=== PATIENT | male | born 1960 | race Caucasian/White ===

== ENCOUNTER → 2020-06-10 10:36 | Outpatient (CLI) | payer BC, SELFPAY ==
--- NOTE | ~2020-06-10 | US_ITS ---
EXAMINATION: US soft tissue chest EXAM DATE: 06/10/2020 10:52 INDICATION: R22.2 - Localized swelling, mass and lump, trunk . TECHNIQUE: Multiple grayscale and Doppler images of the symptomatic chest soft tissue were obtained ( by a technologist who performed the scan) and subsequently reviewed. There is no prior study for srinivasan galan. FINDINGS: Image annotated left breast 6 o'clock position demonstrates a focal region which is slightly hyperech oic to the surrounding fat measuring 1.3 x 0.6 x 1.7 cm. There is another similar echogenicity region . Measuring 4 x 3 x 4 mm. Could be encapsulated lipomas. Consider chest CT without contrast for confi rmation of fat density. IMPRESSION: 2 regions, slightly hyperechoic to subcutaneous fat, most likely encapsulated lipomas. Co nsider noncontrast chest CT for confirmation of fat density. Reviewed, dictated and finalized at location A. [employer] IMPRESSION: 2 regions, slightly hyperechoic to subcutaneous fat, most likely en capsulated lipomas. Consider noncontrast chest CT for confirmation of fat densi ty.
== END ==
PROVIDERS: PCP Nurse Practitioner Family; Visit Provider Nurse Practitioner Family
DX: R22.2 Localized swelling, mass and lump, trunk (principal); N63.25 Unspecified lump in the left breast, overlapping quadrants
CPT/HCPCS: 76604

== ENCOUNTER → 2020-06-26 13:38 | Outpatient (CLI) | payer BC, SELFPAY ==
--- NOTE | ~2020-06-26 | CT_ITS ---
EXAMINATION:CT chest wo con DATE: 06/26/2020 14:22 INDICATION: Left chest mass. TECHNIQUE: Computed tomography (CT) of the chest was performed without intravenous contrast. Automate d exposure control and iterative reconstruction technique were employed. The dose-length product (DLP ) was 554.48 mGy-cm. COMPARISON: Chest CT 06/29/2015, ultrasound 06/10/2020 FINDINGS: The lungs demonstrate mild atelectasis. No pleural effusion. The heart size is normal. No p ericardial effusion. There are no pathologically enlarged lymph nodes. There is a 1.9 cm nodule in ri ght thyroid lobe, stable from 06/29/2015, likely benign. There is an electronic implant in left anteri or chest wall. There is a skin marker inferior to the left nipple. There is subcutaneous fat in this area with no abnormal mass. There is mild thoracic spondylosis. There is severe cervical spondylosis. IMPRESSION: 1. Normal subcutaneous fat in the patient's area of concern inferior to the left nipple. Reviewed, dictated and finalized at location A. NG [employer] IMPRESSION: 1. Normal subcutaneous fat in the patient's area of concern inferior to the lef t nipple.
== END ==
PROVIDERS: PCP Family Medicine; Visit Provider Nurse Practitioner Family
DX: R22.2 Localized swelling, mass and lump, trunk (principal); M47.813 Spondylosis without myelopathy or radiculopathy, cervicothoracic region; E04.1 Nontoxic single thyroid nodule
CPT/HCPCS: 71250

== ENCOUNTER 2020-10-20 08:58 | Outpatient (CLI) | payer BC, SELFPAY ==
--- NOTE | ~2020-10-20 | US_ITS ---
US soft tissue abdomen 10/20/2020 09:36 Indication: Right lower quadrant palpable abnormality since May 28 been by insect. Patient states the palpable abnormality increases and decreases in size and sometimes painful. Procedure: High-resolution Limited soft tissue ultrasound of the area of palpable concern Comparison: No prior studies for comparison. Findings: In the subcutaneous tissues in the area of palpable concern there is an elliptical hypoecho ic mass measuring 1.9 x 0.2 x 1.2 cm without posterior features. There is internal vascularity. Surro unding soft tissues are unremarkable. Impression: 1: Elliptical hypoechoic mass corresponding to the palpable abnormality measuring 1.9 x 0.2 x 1.2 cm, likely focal phlegmon/infection. Complicated sebaceous cyst less favored given the appearance and cl inical history. Consider attempted aspiration using ultrasound guidance as clinically warranted. Reviewed, dictated and finalized at location B. Impression: 1: Elliptical hypoechoic mass corresponding to the palpable abnormality measuri ng 1.9 x 0.2 x 1.2 cm, likely focal phlegmon/infection. Complicated sebaceous c yst less favored given the appearance and clinical history. Consider attempted aspiration using ultrasound guidance as clinically warranted.
== END 2020-10-20 08:59 | disposition home or self-care (01) ==
PROVIDERS: PCP Family Medicine; Visit Provider Nurse Practitioner Family
DX: R19.00 Intra-abdominal and pelvic swelling, mass and lump, unspecified site (principal); M79.5 Residual foreign body in soft tissue; R10.31 Right lower quadrant pain
CPT/HCPCS: 76705

== ENCOUNTER 2020-11-21 20:59 | Emergency (ER) | payer BC, SELFPAY ==
[2020-11-21 21:07] VITALS: BP 140/86; PULSE 99; RESP 17; TEMP 37; O2SAT 95
[2020-11-21 21:53] LABS: Basophils Percent Auto 0.4 % (0.2-1.2); Eosinophils Absolute Auto 0.3 K/mm3 (0-0.3); Hemoglobin 16.2 g/dL (14.0-18.0); Immature Granulocyte Absolute 0.02 K/mm3 (0.00-0.031); Immature Granulocyte Percent A 0.2 % (0-0.5); Lymphocytes Absolute Auto 2.77 K/mm3 (0.9-3.2); Lymphocytes Percent Auto 31.1 % (18.3-44.2); Mean Corpuscular HGB Conc 34.5 g/dl (32-36); Mean Corpuscular Hemoglobin 31.2 pg (26-34); Mean Corpuscular Volume 90.4 fl (80-100); Mean Platelet Volume 10.2 fl (7.4-10.4); Monocytes Absolute Auto 0.7 K/mm3 (0.1-0.6); Monocytes Percent Auto 8.1 % (2.6-8.5); Neutrophils Absolute Auto 5.1 K/mm3 (1.3-6.7); Neutrophils Percent Auto 57.2 % (45.5-73.1); Platelet Count Result 217 k/mm3 (150-375); Red Cell Distribution Width 11.7 % (11.5-14.5); White Blood Count 8.9 K/mm3 (4.5-10.0)
[2020-11-21 22:02] LABS: Anion Gap 11 mmol/L (8-16); Blood Urea Nitrogen 17 mg/dL (9-20); Calcium 8.8 mg/dL (8.4-10.2); Carbon Dioxide 21 mmol/L (22-30); Chloride 105 mmol/L (98-107); Estimated CRCL calculation 89 ml/min; Estimated Glomerular Filt Rate > 60; Glucose 205 mg/dL (75-110); Potassium 3.9 mmol/L (3.4-5.0); Sodium 137 mmol/L (137-145)
--- NOTE | 2020-11-21 22:16 | ED.SKABFB ---
HPI - Skin/Abscess/Foreign Bdy General Chief complaint: Skin/Abscess/Foreign Body Stated complaint: lump in side is infected Time Seen by Provider: 11/21/20 21:11 Source: patient Mode of arrival: ambulatory Limitations: no limitations History of Present Illness HPI narrative: Patient is a 60-year-old male complaining of a tender swollen area on his right lower quadrant that has been going on for a while but for the past 2 days it is worse. Patient states that he has an appointment to have it removed by Dr. Jacobs third week of November. Patient denies any abdominal pain, fever, chills. Patient denies any nausea or vomiting. Related Data Allergies Allergy/AdvReac Type Severity Reaction Status Date / Time No Known Allergies Allergy Verified 11/14/20 09:06 Review of Systems Review of Systems: All systems reviewed & are unremarkable except as noted in HPI and below Constitutional: Constitutional: Denies body ache(s), Denies chills, Denies excessive sweating, Denies fatigue, Denies fever(s), Denies headache(s), Denies lethargy, Denies malaise, Denies weakness and Denies weight loss Eyes: Eyes: Denies blurry vision, Denies change in vision and Denies loss of vision ENT: Denies dizziness, Denies ear discharge, Denies headache(s), Denies lip swelling, Denies epistaxis, Denies nasal congestion, Denies neck pain, Denies throat swelling and Denies tongue swelling Cardiovascular: Cardiovascular: Denies chest pain, Denies chest pain at rest, Denies chest pain with activity, Denies diaphoresis, Denies rapid heart rate, Denies edema, Denies irregular heart rhythm, Denies lightheadedness, Denies palpitations, Denies dyspnea and Denies dyspnea on exertion Respiratory: Respiratory: Denies chest congestion, Denies cough, Denies hemoptysis, Denies dyspnea and Denies dyspnea on exertion Gastrointestinal: Gastrointestinal: Denies abdominal pain, Denies melena, Denies hematochezia, Denies diarrhea, Denies nausea, Denies vomiting and Denies hematemesis Musculoskeletal: Musculoskeletal: Denies abnormal gait, Denies deformity, Denies joint swelling, Denies limited range of motion, Denies neck pain and Denies numbness Neurologic: Denies Abnormal speech present, Denies abnormal gait, Denies confusion, Denies dizziness, Denies headache(s), Denies focal weakness, Denies loss of vision, Denies numbness, Denies Other visual disturbances, Denies Sensory deficit (Neuro) and Denies weakness Psychiatric: Psychiatric: Denies confusion, Denies depression, Denies auditory hallucinations, Denies homicidal ideation and Denies suicidal ideation Endocrine: Endocrine: Denies cold intolerance, Denies excessive sweating, Denies fatigue, Denies heat intolerance and Denies palpitations Hematologic/Lymphatic: Hematologic/Lymphatic: Denies easy bleeding and Denies easy bruising Allergic/Immunologic: Allergic/Immunologic: Denies lip swelling, Denies throat swelling and Denies tongue swelling PMFSH Past Medical History Medical History BMI 32.0-32.9,adult Essential (primary) hypertension Type 2 diabetes mellitus, uncontrolled Surgical History Surgical History H/O hand surgery Family History Family History Mother Family history of lung cancer Grandparent Brain cancer Social History Social History Smoking status: Never smoker Alcohol intake: current Substance use: unknown Additional occupation/education comments: [employer] Gender identity (if verbalized by the patient): Male Exam Const: General: cooperative, healthy appearing, comfortable, no acute distress, well developed, alert and awake; No confusion Orientation/consciousness: oriented to person, oriented to place, oriented to time, patient oriented x3 and No confusion Limitations: no
[2020-11-21 22:35] VITALS: BP 136/72; PULSE 80; RESP 18; O2SAT 96
== END 2020-11-21 22:35 | disposition home or self-care (01) ==
PROVIDERS: Emergency Provider Emergency Medicine; PCP Family Medicine
DX: L03.311 Cellulitis of abdominal wall (principal); E11.9 Type 2 diabetes mellitus without complications; I10 Essential (primary) hypertension
CPT/HCPCS: 36415; 80048; 85025; 99283

== ENCOUNTER → 2020-11-25 06:45 | Outpatient (CLI) | payer BC, SELFPAY ==
[2020-11-25 19:16] LABS: SARS-CoV-2 RNA PCR Negative
== END ==
PROVIDERS: PCP Family Medicine; Visit Provider Surgery
DX: Z01.812 Encounter for preprocedural laboratory examination (principal); Z20.822 Contact with and (suspected) exposure to COVID-19
CPT/HCPCS: C9803; U0003; U0005

== ENCOUNTER 2020-11-29 01:05 | Day surgery (SDC) | payer BC, SELFPAY ==
[2020-11-22 15:44] VITALS: BMI 29.6
[2020-11-29 05:59] VITALS: BP 138/83; PULSE 77; RESP 16; TEMP 36.4; O2SAT 97
--- NOTE | 2020-11-29 06:01 | ECG_ITS ---
Measurements Intervals [place] Rate: 71 P: 35 LA: 165 QRS: -19 QRSD: 84 T: 35 QT: 377 QTc: 412 Interpretive Statements SINUS RHYTHM INCOMPLETE RIGHT BUNDLE BRANCH BLOCK DELAYED PRECORDIAL R/S TRANSITION INFERIOR INFARCT, AGE INDETERMINATE BASELINE ARTIFACT- II, III, AVR, AVL, AVF ABNORMAL ECG Electronically Signed On 11-29-2020 8:05:16 CDT by Go Lam D.O.
[2020-11-29] MEDS: LACTATED RINGERS 1,000 ML 30 ML IV CONT (06:38)
[2020-11-29 06:41] LABS: Glucose Point of Care 139 (65-105)
--- NOTE | 2020-11-29 06:43 | WPDANESEPPF ---
Anes - Initial Pre Proc Eval Procedure: Operation Date: 11/29/20 07:30 Proposed Procedures p Excision Two Centimeter Right Lower Quadrant Abdominal Wall Mass - Tarik Jacobs DO Date/Time: 11/29/20 06:43 Surgeon: Tarik Jacobs DO Pre Op Diagnosis: Right Lower Quadarent Abdominal Wall Mass Patient Data Age: 60 Gender: M Height: 1.85 m Weight: 102 kg Allergies Allergy/AdvReac Type Severity Reaction Status Date / Time No Known Allergies Allergy Verified 11/29/20 06:19 Home Medications Medication Instructions Recorded Confirmed Type esomeprazole magnesium 40 mg 40 mg PO DAILY #90 cap 05/29/20 11/29/20 Rx capsule,delayed release ezetimibe 10 mg tablet 10 mg PO DAILY #90 tablet 07/27/20 11/29/20 Rx dulaglutide 1.5 mg/0.5 mL 1.5 mg SUB-Q WEEKLY #6 ml 10/12/20 11/29/20 Rx subcutaneous pen injector pregabalin 150 mg capsule 150 mg PO BID #60 cap 10/12/20 11/29/20 Rx doxycycline hyclate 100 mg PO BID 11/22/20 11/29/20 History benazepril 10 mg tablet 10 mg PO DAILY #90 tablet 11/24/20 11/29/20 Rx metformin 500 mg tablet,extended 2,000 mg PO DAILY #360 tablet 11/24/20 11/29/20 Rx release 24 hr dapagliflozin [Farxiga] 10 mg PO DAILY 11/29/20 11/29/20 History Laboratory Tests 11/29/20 06:34 POC Capillary Glucose 139 mg/dl H mg/dl (65-105) Patient hx anesthesia problems: none Family hx anesthesia problems: none PMFSH Past Medical History Medical History (Updated 11/28/20 @ 13:13 by Jr Lugo DO) BMI 32.0-32.9,adult Essential (primary) hypertension Hyperlipidemia Type 2 diabetes mellitus, uncontrolled Surgical History Surgical History H/O hand surgery Family History Family History Mother Family history of lung cancer Grandparent Brain cancer Social History Social History Smoking status: Never smoker Alcohol intake: current Drinks per week: 4 Substance use: never Substance use type: does not use Living arrangements: with family Additional occupation/education comments: [employer] Gender identity (if verbalized by the patient): Male Spiritual care concerns: No Anes - Eval Final PreProcedure Day of Procedure 11/29/20 06:43 Patient weight: overweight Heart: regular rate and rhythm Lungs: clear to auscultation and normal air movement Airway: Mallampati scale class II Neurological: alert and oriented Last oral intake: >/= 8 hours ASA classification: III Emergent: no Anesthetic plan: proceed Anesthesia type and monitoring: general GIVS and standard monitoring Informed Consent: The patient's anesthetic plan and its attendant risks and benefits were discussed with the patient/family/POA. Questions were solicited and answers provided to the satisfaction of the patient/family/POA.
[2020-11-29] MEDS: LIDO 1%/EPINEPHRINE 1:100,000 50 ML VIAL 30 ML INFILTRATE (07:11)
--- NOTE | 2020-11-29 07:16 | WPDHPUPDATE1 ---
History and Physical Update Update Date/Time: 11/29/20 07:16 History and Physical has been reviewed, including an updated exam of the patient. There are NO changes in the patient's condition. Risks, benefits, and alternatives have been discussed and questions answered. Patient agrees to proceed with procedure.
[2020-11-29 08:09] VITALS: BP 117/75; PULSE 85; RESP 16; O2SAT 96
--- NOTE | 2020-11-29 08:09 | P.OP_ITS ---
Procedure Note - Detailed Date of procedure: 11/29/20 Pre-op diagnosis: Right Lower Quadarent Abdominal Wall Mass Post-op diagnosis: same Procedure performed: 1. Excision of 2 cm right lower quadrant abdominal wall mass 2. Layered closure Description of procedure: * Procedure as well as risks, benefits, and alternatives were discussed with the patient. Written consent was obtained and placed in chart prior to procedure. Patient was brought back to surgical suite. IV sedation was administered by the Anesthesia Department. His right lower abdomen was prepped and draped in sterile fashion using chlorhexidine prep. Time-out was done to confirm patient and procedure. 1% lidocaine with epinephrine was infiltrated locally around the abdominal wall mass. A 2 cm x 6 cm elliptical incision was made around the mass to excise it completely using a 15 blade scalpel. The mass was sharply dissected down through the dermis using a 15 blade scalpel. Electrocautery was then used to dissect the mass free from the surrounding subcutaneous fat. The mass was completely excised and sent to the lab for pathology. The wound bed was inspected and hemostasis appeared adequate. The deep dermis and subcutaneous tissue was approximated using 3 0 Vicryl inverted interrupted sutures. The skin was then approximated using 4 0 Monocryl running subcuticular suture. Exofin glue was then applied on top. Patient was then awakened from anesthesia and transferred to recovery. Anesthesia: MAC and local (1% lidocaine with epinephrine) Surgeon: Tarik Jacobs DO Estimated blood loss (mL): 5 Pathology: yes (Abdominal wall mass) Complications: No immediate complications Condition: stable Disposition: same day Findings: This is a 60-year-old man who presented with a mass on his right lower quadrant abdominal wall. He states that it has fluctuated in size and has become red and irritated. He has tried antibiotics for this but it has not gone down in size. He denies any open wounds or drainage. An ultrasound was obtained and this showed evidence of phlegmonous changes and a possible foreign body just deep to the skin. Discussions were made with the patient about his treatment options and decision was made to proceed with excision of 2 cm right lower quadrant abdominal wall mass under IV sedation. The 2 cm mass was excised completely. This appeared to be possibly a cyst or abscess contained within the subcutaneous space. An elliptical incision was used to excise the area completely. Layered closure was then performed using 3 0 Vicryl sutures followed by 4 0 Monocryl running subcuticular suture. Specimen was sent to the lab for pathology.
[2020-11-29 08:39] VITALS: BP 116/71; PULSE 85; RESP 16; O2SAT 94
[2020-11-29 09:09] VITALS: BP 117/72; PULSE 76; RESP 16
[2020-11-29 09:20] LABS: Glucose Point of Care 171 (65-105)
[2020-11-29 09:25] VITALS: BP 128/71; PULSE 67; RESP 16
== END 2020-11-29 09:35 | disposition home or self-care (01) ==
PROVIDERS: PCP Family Medicine; Visit Provider Surgery
PROC: (CPT 11402; principal; 2020-11-29 07:30)
DX: L72.0 Epidermal cyst (principal); E11.9 Type 2 diabetes mellitus without complications; I10 Essential (primary) hypertension; E78.5 Hyperlipidemia, unspecified; Z79.84 Long term (current) use of oral hypoglycemic drugs
CPT/HCPCS: 11402; 12032; 82948; 88304; 93005; A9270; C9803; J2250; J2704; J3010; J7120; U0003; U0005

== ENCOUNTER → 2021-02-26 15:44 | Outpatient (CLI) | payer BC, SELFPAY ==
--- NOTE | ~2021-02-26 | CT_ITS ---
EXAMINATION: CT abdomen pelvis w con DATE: 02/26/2021 16:03 INDICATION: Right lower quadrant abdominal pain. Blood in stool. Mass removed from right lower quadra nt 2 months ago. TECHNIQUE: Computed tomography (CT) of the abdomen and pelvis was performed with 100 cc Omnipaque 350 intravenous contrast. Automated exposure control and iterative reconstruction technique were employe d. Exam dose: 1067.80 mGy-cm total exam DLP. COMPARISON: 06/23/2012 CT abdomen pelvis 06/09/2020 CT chest. FINDINGS: The lung bases are clear of infiltrate or consolidation. There is minimal dependent lower l obe atelectasis. Borderline heart size. No pericardial or pleural effusion. There is hepatic steatosis with minimal sparing in the pericholecystic area. No hepatic space-occupyi ng mass lesion is evident. Normal splenic size. No pancreatic mass lesion or calcification or ductal dilatation. The gallbladder is present. No bile duct dilatation. Normal morphology of the adrenal glands. Several small probable cortical cysts of the kidneys. No urinary tract calculus or hydroureteronephro sis. Normal caliber of the abdominal aorta. No intraperitoneal or retroperitoneal or pelvic mass lesion or adenopathy or ascites. Mild prominence of the prostate gland. The urinary bladder is unremarkable. Normal caliber of the abdominal aorta. No intraperitoneal or retroperitoneal or pelvic mass lesion or adenopathy or ascites. The appendix appears unremarkable. No CT evidence of appendicitis. Minimal diverticulosis of the colon; no CT evidence of diverticulitis is evident Chronic L1 fracture deformity. Severe degenerative disc disease throughout the lumbar and lumbosacral spine, particularly severe at L2-3, L4-5 and L5-S1. There is minimal retrolisthesis at L3-4 in association with the degenerative di sc disease. IMPRESSION: Minimal colonic diverticulosis; no evidence of bowel obstruction Hepatic steatosis Several small renal cysts Chronic L1 fracture deformity and severe degenerative change of the lumbar spine Reviewed, dictated and finalized at Location [facility]. Reviewed, dictated and finalized at location B. IMPRESSION: Minimal colonic diverticulosis; no evidence of bowel obstruction Hepatic steatosis Several small renal cysts Chronic L1 fracture deformity and severe degenerative change of the lumbar spin e
[2021-02-26 15:59] LABS: Estimated Glomerular Filt Rate > 60
== END ==
PROVIDERS: PCP Family Medicine; Visit Provider Nurse Practitioner Family
DX: R10.31 Right lower quadrant pain (principal); K57.90 Diverticulosis of intestine, part unspecified, without perforation or abscess without bleeding; K76.0 Fatty (change of) liver, not elsewhere classified; N28.1 Cyst of kidney, acquired; M43.8X6 Other specified deforming dorsopathies, lumbar region
CPT/HCPCS: 74177; Q9967

== ENCOUNTER 2021-02-26 16:55 | Outpatient (CLI) | payer BC, SELFPAY ==
[2021-02-26 17:17] LABS: Basophils Percent Auto 0.5 % (0.2-1.2); Eosinophils Absolute Auto 0.4 K/mm3 (0-0.3); Eosinophils Percent Auto 4.9 % (0-4.4); Hematocrit 50.4 % (42.0-52.0); Immature Granulocyte Absolute 0.01 K/mm3 (0.00-0.031); Immature Granulocyte Percent A 0.1 % (0-0.5); Lymphocytes Absolute Auto 2.34 K/mm3 (0.9-3.2); Lymphocytes Percent Auto 29.3 % (18.3-44.2); Mean Corpuscular HGB Conc 33.7 g/dl (32-36); Mean Corpuscular Hemoglobin 30.4 pg (26-34); Mean Platelet Volume 10.1 fl (7.4-10.4); Monocytes Absolute Auto 0.8 K/mm3 (0.1-0.6); Monocytes Percent Auto 9.4 % (2.6-8.5); Neutrophils Absolute Auto 4.5 K/mm3 (1.3-6.7); Neutrophils Percent Auto 55.8 % (45.5-73.1); Platelet Count Result 248 k/mm3 (150-375); Red Cell Distribution Width 11.9 % (11.5-14.5)
[2021-02-26 17:30] LABS: Alanine Aminotransferase 35 U/L (4-50); Albumin Level 4.5 g/dL (3.5-5.1); Alkaline Phosphatase 69 U/L (38-126); Amylase 99 U/L (30-110); Anion Gap 11 mmol/L (8-16); Aspartate Amino Transferase 27 U/L (17-59); Bilirubin,Total 0.6 mg/dL (0.2-1.3); Blood Urea Nitrogen 15 mg/dL (9-20); Calcium 9.7 mg/dL (8.4-10.2); Carbon Dioxide 23 mmol/L (22-30); Chloride 104 mmol/L (98-107); Estimated Glomerular Filt Rate > 60; Glucose 147 mg/dL (65-110); Lipase 136 U/L (23-300); Potassium 4.7 mmol/L (3.4-5.0); Sodium 138 mmol/L (137-145)
== END 2021-02-26 16:56 | disposition home or self-care (01) ==
PROVIDERS: PCP Family Medicine; Visit Provider Nurse Practitioner Family
DX: R10.31 Right lower quadrant pain (principal)
CPT/HCPCS: 36415; 80053; 82150; 83690; 85025

== ENCOUNTER 2021-03-08 20:20 | Emergency (ER) | payer BC, SELFPAY ==
--- NOTE | ~2021-03-08 | CT_ITS ---
EXAMINATION: CT abdomen pelvis w con DATE: 03/08/2021 21:01 INDICATION: Right lower quadrant abdominal pain and blood in the stool. TECHNIQUE: Computed tomography (CT) of the abdomen and pelvis was performed with 100 mL Omnipaque-350 intravenous contrast. Automated exposure control and iterative reconstruction technique were employe d. The dose-length product was 1278.14 mGy-cm. COMPARISON: 02/26/2021 FINDINGS: Lung bases are clear. Heart size is normal. No pericardial or pleural effusion. Small sliding-type hi atal hernia. Diffuse hepatic steatosis with focal sparing along the gallbladder fossa. Gallbladder, s pleen, pancreas and bilateral adrenal glands are normal. Approximately 5 mm bilateral renal cysts. Bl adder is normal. The bowels including the appendix are normal. No free intraperitoneal gas or fluid. No pathologically enlarged abdominal or pelvic lymphadenopathy. Mild lumbar dextrocurvature with maria m re spondylosis. Chronic L1 compression fracture. IMPRESSION: 1. No acute intra-abdominal/pelvic process. 2. Small sliding-type hiatal hernia. 3. Diffuse hepatic steatosis. Reviewed, dictated and finalized at location A.
[2021-03-08 20:25] VITALS: BP 175/112; PULSE 101; RESP 18; TEMP 36.8; O2SAT 98
[2021-03-08 20:48] LABS: Basophils Absolute Auto 0.1 K/mm3 (0.0-0.1); Basophils Percent Auto 0.5 % (0.2-1.2); Eosinophils Absolute Auto 0.4 K/mm3 (0-0.3); Eosinophils Percent Auto 3.9 % (0-4.4); Hematocrit 53.1 % (42.0-52.0); Hemoglobin 17.9 g/dL (14.0-18.0); Immature Granulocyte Absolute 0.02 K/mm3 (0.00-0.031); Immature Granulocyte Percent A 0.2 % (0-0.5); Lymphocytes Absolute Auto 3.72 K/mm3 (0.9-3.2); Lymphocytes Percent Auto 40.7 % (18.3-44.2); Mean Corpuscular HGB Conc 33.7 g/dl (32-36); Mean Corpuscular Hemoglobin 30.7 pg (26-34); Mean Corpuscular Volume 90.9 fl (80-100); Mean Platelet Volume 10.2 fl (7.4-10.4); Monocytes Absolute Auto 0.9 K/mm3 (0.1-0.6); Monocytes Percent Auto 9.4 % (2.6-8.5); Neutrophils Absolute Auto 4.1 K/mm3 (1.3-6.7); Neutrophils Percent Auto 45.3 % (45.5-73.1); Platelet Count Result 254 k/mm3 (150-375); Red Blood Count 5.84 M/mm3 (4.6-6.20); Red Cell Distribution Width 12.4 % (11.5-14.5); White Blood Count 9.1 K/mm3 (4.5-10.0)
[2021-03-08 20:57] LABS: INR 0.9; Prothrombin Time 12.3 Seconds (11.1-14.7)
[2021-03-08 21:12] LABS: Alanine Aminotransferase 41 U/L (4-50); Albumin Level 4.9 g/dL (3.5-5.1); Alkaline Phosphatase 74 U/L (38-126); Anion Gap 12 mmol/L (8-16); Aspartate Amino Transferase 33 U/L (17-59); Bilirubin,Total 0.6 mg/dL (0.2-1.3); Blood Urea Nitrogen 15 mg/dL (9-20); Calcium 9.8 mg/dL (8.4-10.2); Carbon Dioxide 24 mmol/L (22-30); Chloride 99 mmol/L (98-107); Estimated CRCL calculation 89 ml/min; Estimated Glomerular Filt Rate > 60; Glucose 171 mg/dL (65-110); Potassium 4.6 mmol/L (3.4-5.0); Sodium 135 mmol/L (137-145)
[2021-03-08 22:20] VITALS: BP 163/97; PULSE 87; RESP 15; O2SAT 96
[2021-03-08 22:32] VITALS: BP 140/88; PULSE 78; RESP 20; O2SAT 96
[2021-03-08 22:46] VITALS: BP 160/97; PULSE 80; RESP 25; O2SAT 92
--- NOTE | 2021-03-08 22:56 | ED.GIBLEED ---
HPI - GI Bleed General Chief complaint: GI Bleed Stated complaint: blood in stool, abd pain Time Seen by Provider: 03/08/21 22:23 Source: patient and family Mode of arrival: ambulatory Limitations: no limitations History of Present Illness HPI Narrative: Patient is 60 years old white male presented to the ED with gradual increasing of pain at the right lower quadrant over weeks, got more noticeable 2 weeks ago, constant. Patient also noticed intermittent blood streaks on the stool every now and then. Patient also complaining of constipation for the last 4 weeks. 1 bowel movement every now and then. Patient scheduled to be seen by demonstrator [employer] next week. Patient denies any fever, chills, nausea, vomiting, urinary symptoms, chest pain or shortness of breath. Related Data Home Medications Medication Instructions Recorded Confirmed Farxiga 10 mg PO DAILY 11/29/20 03/07/21 Allergies Allergy/AdvReac Type Severity Reaction Status Date / Time No Known Allergies Allergy Verified 03/08/21 20:25 Review of Systems Review of Systems: CONSTITUTIONAL: Denies fever, chills, or sweats. EYES: Denies visual changes, redness, or discharge. ENT: Denies rhinorrhea, congestion, sore throat, or otalgia. CARDIOVASCULAR: Denies chest pain, palpitations, or edema. RESPIRATORY: Denies cough or dyspnea. GASTROINTESTINAL: Denies abdominal pain, nausea, vomiting, or diarrhea. GENITOURINARY: Denies dysuria or hematuria. SKIN: Denies rash or itching. MUSCULOSKELETAL: Denies back pain, joint pain, or myalgia. NEUROLOGIC: Denies headache, numbness, or weakness. PSYCHIATRIC: Denies anxiety or depression. [facility] Past Medical History Medical History BMI 32.0-32.9,adult COVID-19 virus antibody detected Essential (primary) hypertension Hyperlipidemia Type 2 diabetes mellitus, uncontrolled Surgical History Surgical History H/O excision of mass 11/29/20 Excision of 2 cm right lower quadrant abdominal wall mass, Layered closure H/O hand surgery Family History Family History Mother Family history of lung cancer Tobacco abuse Grandparent Brain cancer Father , suicide No problems noted. Sibling Heart disease Melanoma Social History Social History Smoking status: Never smoker Alcohol intake: current Drinks per week: 3 Substance use: never Substance use type: does not use Additional occupation/education comments: [employer] Gender identity (if verbalized by the patient): Male Spiritual care concerns: No Exam Narrative: General appearance: Well-developed, well-nourished Skin: Normal color Head: Normocephalic, nontraumatic Eyes: Clear conjunctiva ENT: Oropharynx normal, ears normal, nose normal Neck: Supple, nontender Chest and respiratory: Airway patent, no respiratory distress, no accessory muscle use Heart: Regular rate/rhythm Abdomen: Soft, nontender, no organomegaly, quiet bowel sounds, rectal exam showed no hemorrhoids, no mass, no tenderness, guaiac negative, no stool in the rectal pouch Vascular: Normal peripheral pulses, normal capillary refill. Musculoskeletal: Normal range of motion, nontender back Neurologic: Alert and oriented ?3, [employer] is normal as tested, no gross motor deficit Course Course Emergency Course: Stable Vital Signs Vital signs: Vital Signs Temperature 36.8 C 03/08/21 20:25 Pulse Rate 101 H 03/08/21 20:25 Respiratory Rate 18 03/08/21 20:25 Blood Pressure 175/112 H
[2021-03-08 23:01] VITALS: BP 150/85; PULSE 75; RESP 16; O2SAT 93
[2021-03-08 23:08] VITALS: BP 150/85; PULSE 78; RESP 20; O2SAT 95
== END 2021-03-08 23:11 | disposition home or self-care (01) ==
PROVIDERS: Emergency Provider Emergency Medicine; PCP Family Medicine
DX: R10.9 Unspecified abdominal pain (principal); K59.00 Constipation, unspecified; I10 Essential (primary) hypertension; E78.5 Hyperlipidemia, unspecified; E11.9 Type 2 diabetes mellitus without complications
CPT/HCPCS: 36415; 74177; 80053; 83605; 85025; 85610; 85730; 86850; 86900; 86901; 99284; Q9967

== ENCOUNTER 2021-03-16 04:40 | Day surgery (SDC) | payer BC, SELFPAY ==
[2021-03-07 13:47] VITALS: BMI 29.0
--- NOTE | 2021-03-15 22:22 | PM.HPGS ---
History of Present Illness History of Present Illness Consent: Risks, benefits, and alternatives have been discussed and questions answered. Patient agrees to proceed with procedure. Chief complaint: blood in stool, right lower quadrant pain Narrative: Eliceo Bowser III is a 60 year old male with blod in hhis stool and recent RLQ pain. Pain began a couple of months ago. The blood is generally dark red. This began about 2 weeks ago. The pain has been present for a couple of months. He did have a lesion removed from his abdominal wall in the right lower quadrant. He states that the lesion was indeterminate in terms of its pathology. Review of Systems Review of Systems: All systems reviewed & are unremarkable except as noted in HPI and below PMFSH Past Medical History Medical History BMI 32.0-32.9,adult COVID-19 virus antibody detected Essential (primary) hypertension Hyperlipidemia Type 2 diabetes mellitus, uncontrolled Surgical History Surgical History H/O excision of mass 11/29/20 Excision of 2 cm right lower quadrant abdominal wall mass, Layered closure H/O hand surgery Family History Family History Mother Family history of lung cancer Tobacco abuse Grandparent Brain cancer Father , suicide No problems noted. Sibling Heart disease Melanoma Social History Social History Smoking status: Never smoker Alcohol intake: current Drinks per week: 3 Substance use: never Substance use type: does not use Living arrangements: with family Additional occupation/education comments: [employer] Gender identity (if verbalized by the patient): Male Spiritual care concerns: No Meds Home Medications and Allergies Home Medications Medication Instructions Recorded Confirmed Type dulaglutide 1.5 mg/0.5 mL 1.5 mg SUB-Q WEEKLY #6 ml 10/12/20 03/16/21 Rx subcutaneous pen injector Farxiga 10 mg PO DAILY 11/29/20 03/16/21 History benazepril 10 mg tablet 10 mg PO DAILY #90 tablet 02/08/21 03/16/21 Rx esomeprazole magnesium 40 mg 40 mg PO DAILY #90 cap 02/08/21 03/16/21 Rx capsule,delayed release ezetimibe 10 mg tablet 10 mg PO DAILY #90 tablet 02/08/21 03/16/21 Rx metformin 500 mg tablet,extended 2,000 mg PO DAILY #360 tablet 02/08/21 03/16/21 Rx release 24 hr pregabalin 150 mg capsule 150 mg PO BID #60 cap 02/08/21 03/16/21 Rx Allergies Allergy/AdvReac Type Severity Reaction Status Date / Time No Known Allergies Allergy Verified 03/16/21 08:47 Exam Resp: Auscultation: clear to auscultation bilaterally Cardio: Rate: regular rate Rhythm: regular rhythm GI: GI Palp: Yes Soft to palpation and No Tenderness to palpation present (GI) Assessment and Plan Assessment and plan (1) Blood in stool: Code(s): K92.1 - Melena Status: Acute Assessment and Plan: Colonoscopy with possible biopsy or polypectomy or cautery or injection of substances.
--- NOTE | 2021-03-16 08:32 | WPDANESEPPF ---
Anes - Initial Pre Proc Eval Procedure: Operation Date: 03/16/21 09:30 Proposed Procedures p Colonoscopy - Bryan Ernandez MD Date/Time: 03/16/21 08:32 Surgeon: Bryan Ernandez MD Pre Op Diagnosis: blood in stool, right lower quadrant pain Patient Data Age: 60 Gender: M Height: 1.85 m Weight: 100 kg Allergies Allergy/AdvReac Type Severity Reaction Status Date / Time No Known Allergies Allergy Verified 03/16/21 08:47 Home Medications Medication Instructions Recorded Confirmed Type dulaglutide 1.5 mg/0.5 mL 1.5 mg SUB-Q WEEKLY #6 ml 10/12/20 03/16/21 Rx subcutaneous pen injector Farxiga 10 mg PO DAILY 11/29/20 03/16/21 History benazepril 10 mg tablet 10 mg PO DAILY #90 tablet 02/08/21 03/16/21 Rx esomeprazole magnesium 40 mg 40 mg PO DAILY #90 cap 02/08/21 03/16/21 Rx capsule,delayed release ezetimibe 10 mg tablet 10 mg PO DAILY #90 tablet 02/08/21 03/16/21 Rx metformin 500 mg tablet,extended 2,000 mg PO DAILY #360 tablet 02/08/21 03/16/21 Rx release 24 hr pregabalin 150 mg capsule 150 mg PO BID #60 cap 02/08/21 03/16/21 Rx Patient hx anesthesia problems: none Family hx anesthesia problems: none PMFSH Past Medical History Medical History BMI 32.0-32.9,adult COVID-19 virus antibody detected Essential (primary) hypertension Hyperlipidemia Type 2 diabetes mellitus, uncontrolled Surgical History Surgical History H/O excision of mass 11/29/20 Excision of 2 cm right lower quadrant abdominal wall mass, Layered closure H/O hand surgery Family History Family History Mother Family history of lung cancer Tobacco abuse Grandparent Brain cancer Father , suicide No problems noted. Sibling Heart disease Melanoma Social History Social History Smoking status: Never smoker Alcohol intake: current Drinks per week: 3 Substance use: never Substance use type: does not use Living arrangements: with family Additional occupation/education comments: [employer] Gender identity (if verbalized by the patient): Male Spiritual care concerns: No Anes - Eval Final PreProcedure Day of Procedure 03/16/21 08:32 Patient weight: obese Heart: regular rate and rhythm Lungs: clear to auscultation and normal air movement Airway: Mallampati scale class II Neurological: alert and oriented Last oral intake: >/= 8 hours ASA classification: III Emergent: no Anesthetic plan: proceed Anesthesia type and monitoring: general GIVS Informed Consent: The patient's anesthetic plan and its attendant risks and benefits were discussed with the patient/family/POA. Questions were solicited and answers provided to the satisfaction of the patient/family/POA.
[2021-03-16 08:50] VITALS: BP 128/87; PULSE 67; RESP 18; TEMP 36.1; O2SAT 98; BMI 29.7
[2021-03-16] MEDS: LACTATED RINGERS 1,000 ML 150 ML IV CONT (09:02)
[2021-03-16 09:09] LABS: Glucose Point of Care 189 mg/dl (65-105)
[2021-03-16 09:59] VITALS: BP 112/71; PULSE 64; RESP 18; O2SAT 96
[2021-03-16 10:09] VITALS: BP 118/79; PULSE 61; RESP 23; O2SAT 97
[2021-03-16 10:19] VITALS: BP 124/79; PULSE 59; RESP 21; O2SAT 98
== END 2021-03-16 10:33 | disposition home or self-care (01) ==
PROVIDERS: PCP Family Medicine; Visit Provider Internal Medicine Gastroenterology
PROC: 0DJD8ZZ Inspection of Lower Intestinal Tract, Via Natural or Artificial Opening Endoscopic (ICD-10-PCS; CPT 45378; principal; 2021-03-16 09:30)
DX: K92.1 Melena (principal); D12.0 Benign neoplasm of cecum; I10 Essential (primary) hypertension; E78.5 Hyperlipidemia, unspecified; E11.9 Type 2 diabetes mellitus without complications
CPT/HCPCS: 45385; 82948; 88305; J2704; J7120

== ENCOUNTER 2022-02-08 13:52 | Emergency (ER) | payer OTHER, BC, SELFPAY ==
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
[2022-02-08 13:57] VITALS: BP 185/91; PULSE 99; RESP 16; TEMP 36.6; O2SAT 99
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
[2022-02-08] MEDS: ACETAMINOPHEN 325 MG TABLET 650 MG PO (16:08)
[2022-02-08] MEDS: IBUPROFEN 600 MG TABLET PO (16:08)
[2022-02-08] MEDS: CYCLOBENZAPRINE HCL 10 MG TABLET PO (16:10)
== END 2022-02-08 16:05 | disposition home or self-care (01) ==
PROVIDERS: Emergency Provider Emergency Medicine; PCP Family Medicine
DX: M54.41 Lumbago with sciatica, right side (principal); M54.2 Cervicalgia; I10 Essential (primary) hypertension; E78.5 Hyperlipidemia, unspecified; E11.9 Type 2 diabetes mellitus without complications; Z86.16 Personal history of COVID-19; M47.812 Spondylosis without myelopathy or radiculopathy, cervical region; M47.816 Spondylosis without myelopathy or radiculopathy, lumbar region; Z79.4 Long term (current) use of insulin; V49.40XA Driver injured in collision with unspecified motor vehicles in traffic accident, initial encounter
CPT/HCPCS: 72040; 72110; 99283; A9270

== ENCOUNTER 2023-03-27 08:12 | Emergency (ER) | payer BC, SELFPAY ==
--- NOTE | 2023-03-27 08:15 | ED.GENADULT ---
HPI - General Adult General Chief complaint: Dental/Oral Stated complaint: Lt Facial Swelling Time Seen by Provider: 03/27/23 08:18 Source: patient, RN notes reviewed and old records reviewed Mode of arrival: ambulatory Limitations: no limitations History of Present Illness HPI narrative: 62-year-old male presents to the [facility] with complaints of left-sided facial swelling. Was started on amoxicillin 24 March, switch to clindamycin on 26 March by Dental provider. Badger discomfort on Friday, 4 days ago. Patient reports he an implant done to the eye to thin the upper left side. Was supposed to have surgery done on April 01 Patient developed swelling, pain. No facial erythema or increased warmth Onset (ago): day(s) Treatments prior to arrival: other (Antibiotics) Related Data Allergies Allergy/AdvReac Type Severity Reaction Status Date / Time No Known Allergies Allergy Verified 03/27/23 08:28 Review of Systems Review of Systems: All systems reviewed & are unremarkable except as noted in HPI and below Constitutional: Constitutional: Reports no additional constitutional complaints Eyes: Eyes: Reports no additional eye complaints ENT: Reports as per HPI and Reports facial pain Cardiovascular: Cardiovascular: Reports no additional cardiovascular complaints, Denies chest pain and Denies dyspnea Respiratory: Respiratory: Reports no additional respiratory complaints, Denies chest congestion, Denies cough and Denies dyspnea Gastrointestinal: Gastrointestinal: Reports no additional gastrointestinal complaints, Denies abdominal pain, Denies nausea and Denies vomiting Musculoskeletal: Musculoskeletal: Reports no additional musculoskeletal complaints Integumentary/Breasts: Skin/Breast: Reports system reviewed and no additional complaints, except as docu Neurologic: Reports system reviewed and no additional complaints, except as documented Psychiatric: Psychiatric: Reports no additional psychiatric complaints Allergic/Immunologic: Allergic/Immunologic: Reports no additional allergic/immunologic complaints [facility] Past Medical History Medical History BMI 32.0-32.9,adult COVID-19 virus antibody detected Essential (primary) hypertension Hyperlipidemia Type 2 diabetes mellitus, uncontrolled Surgical History Surgical History H/O excision of mass 11/29/20 Excision of 2 cm right lower quadrant abdominal wall mass, Layered closure H/O hand surgery H/O laminectomy Family History Family History Mother Family history of lung cancer Tobacco abuse Grandparent Brain cancer Father , suicide No problems noted. Sibling Heart disease Melanoma Social History Social History Smoking status: Never smoker Alcohol intake: current Drinks per week: 3 Substance use: never Substance use type: does not use Living arrangements: with family Occupation/Education: occupation Additional occupation/education comments: [employer] Gender identity (if verbalized by the patient): Male Spiritual care concerns: No Comments At the time of my signature, I reviewed and agree with the nursing past medical, surgical, social, and family history. There is no relevant family history pertinent to the patient complaint. Exam Const: General: cooperative, healthy appearing, comfortable, no acute distress, well developed, alert and well nourished Nutritional Appearance: well nourished Orientation/consciousness: patient oriented x3 Limitations: no limitations HENMT: Head images: 1. Significant swelling to the left cheek without increased erythema, warmth. Fluctuance noted Ears: hearing grossly normal bilaterally and external ears normal Face/Nose/Sinus: Normal nasal mucous membranes an
[2023-03-27 08:21] VITALS: BP 152/92; PULSE 68; RESP 18; TEMP 36.2; O2SAT 99
--- NOTE | 2023-03-27 08:38 | PC.NURSE ---
PT ADVISED HE MAY NEED ENT OR ORAL SURGERY, PT DECLINES TRANSFER TO [facility] AT THIS TIME, STATES HE WOULD LIKE TO GO TO [facility].
== END 2023-03-27 08:35 | disposition short-term general hospital (02) ==
PROVIDERS: Emergency Provider Nurse Practitioner; PCP Family Medicine
DX: R22.0 Localized swelling, mass and lump, head (principal); I10 Essential (primary) hypertension; E78.5 Hyperlipidemia, unspecified; E11.9 Type 2 diabetes mellitus without complications; Z86.16 Personal history of COVID-19
CPT/HCPCS: 99212; G0463

== ENCOUNTER 2023-03-27 08:45 | Emergency (ER) | payer BC, SELFPAY ==
--- NOTE | ~2023-03-27 | CT_ITS ---
EXAMINATION: CT facial bones w con DATE: 03/27/2023 10:42 INDICATION: Dental abscess TECHNIQUE: Computed tomography (CT) of the facial bones and maxillofacial region was performed with 7 5 mL Omnipaque-350 intravenous contrast. Coronal reconstructions were obtained. Automated exposure co ntrol and iterative reconstruction technique were employed. The dose-length product was 588.52 mGy-cm . COMPARISON: None. FINDINGS: Extensive dental and periodontal disease with multiple dental restorations and a likely bridge extend ing across the maxillary incisors. There is a periapical erosion at the left maxillary first molar (t ooth #14). This erodes through the lateral cortex with overlying peripherally enhancing subperiosteal abscess which tracks cephalad along the maxilla deep to the left nasal labial fold. The abscess darien ures 2.3 cm craniocaudally, 9 mm in thickness and 2.2 cm in orthogonal length along the bone. The per iapical erosion also remodels the cortex at the floor of the left maxillary sinus which is bulging sl ightly into the sinus with mild localized overlying mucosal thickening. No fractures. Orbits are norm al. Additional minimal mucosal thickening in the right maxillary sinus. Mastoid air cells and middle ear cavities are clear. There is increased prominence of couple likely reactive left submandibular ly mph nodes compared with the right but which remain within normal limits. No pathologically enlarged c ervical lymphadenopathy. Visualized portions of the bilateral thyroid lobes appear normal. Severe cer vical spondylosis. IMPRESSION: 1. 2.3 x 2.2 x 0.9 cm subperiosteal abscess overlying a left maxillary first molar periapical abscess which erodes through the lateral maxillary cortex. Reviewed, dictated and finalized at [facility]. IMPRESSION: 1. 2.3 x 2.2 x 0.9 cm subperiosteal abscess overlying a left maxillary first mo lar periapical abscess which erodes through the lateral maxillary cortex.
[2023-03-27 08:50] VITALS: BP 188/86; PULSE 85; RESP 20; TEMP 36.8; O2SAT 100
[2023-03-27 09:01] VITALS: BP 182/106; O2SAT 98
[2023-03-27 09:15] VITALS: BP 166/96; O2SAT 93
[2023-03-27 09:30] VITALS: BP 175/104; O2SAT 95
--- NOTE | 2023-03-27 09:34 | ED.DENTAL ---
HPI - Dental/Oral General Chief complaint: Dental/Oral Stated complaint: left facial swelling Time Seen by Provider: 03/27/23 08:57 Source: patient Limitations: no limitations History of Present Illness HPI Narrative: Patient presents for dental pain and facial swelling. Patient states he has a dental appointment on Friday with Dr. Zamorano. PAtient admits to a tight pain starting friday in the left upper posterior tooth where he has known dental disease, then swelling of the left face began friday, both progressively worsening since onset. Patient states he is on amoxicllin and clindamycin with 2 days of amoxicillin taken and 1 day of clindamycin thus far. Patient has these medications at home. MD Complaint: tooth pain Location: Tooth # (14) Onset (ago): day(s) (Friday) Duration: constant Severity: mild Relieving factors: NSAIDs and other (Tylenol) Exacerbating factors: chewing Context: history of dental caries and poor dental care Associated symptoms: other (No fever, sore throat, dysphagia, trismus, ear pain, vision changes, eye pain, congestion.) Treatment prior to arrival: oral analgesic and other (Clindamycin and amoxicillin.) Related Data Allergies Allergy/AdvReac Type Severity Reaction Status Date / Time No Known Allergies Allergy Verified 03/27/23 08:28 Review of Systems Review of Systems: A 10 system review of systems was completed on the patient and is negative except for what is stated in the HPI. Nursing and ancillary documentation was reviewed. [facility] Past Medical History Medical History BMI 32.0-32.9,adult COVID-19 virus antibody detected Essential (primary) hypertension Hyperlipidemia Type 2 diabetes mellitus, uncontrolled Surgical History Surgical History H/O excision of mass 11/29/20 Excision of 2 cm right lower quadrant abdominal wall mass, Layered closure H/O hand surgery H/O laminectomy Family History Family History Mother Family history of lung cancer Tobacco abuse Grandparent Brain cancer Father , suicide No problems noted. Sibling Heart disease Melanoma Social History Social History Smoking status: Never smoker Alcohol intake: current Drinks per week: 3 Substance use: never Substance use type: does not use Living arrangements: with family Occupation/Education: occupation Additional occupation/education comments: [employer] Gender identity (if verbalized by the patient): Male Spiritual care concerns: No Comments At time of signature, I have reviewed and agree with nursing past medical, surgical, social and family history unless otherwise noted. Please see the nursing chart for further information. There is no relevant family history pertinent to the presenting complaint. Exam Narrative: CONST: No acute distress. Well nourished. HENMT: Head is normocephalic and atraumatic. Moist mucous membranes. No posterior oropharynx erythema. Uvula is midline. No sublingual or submandibular brawny edema. No tongue elevation. No trismus. Tenderness to palpation of tooth 14 with palpable fluctuance of the overlying gingiva without discharge, No maxillary sinus tenderness to palpation. Mild left maxillary facial swelling without periorbital involvement, no erythema, no tenderness to palpation. Bilateral TMs are pink and pearly without bulging. Jaw ROM is intact. Poor dentition, multiple dental carries. EYES: No conjunctival icterus, injection, or pallor. PERRL. NECK: No meningeal signs. Scant left anterior cervical shotty lymphadenopathy. RESP: Able to speak in full sentences. Normal respiratory effort. CTAB. CARDIO: Regular rate. Regular rhythm. 2+ DP and radial pulses bilaterally. GI: Nondistended. No tenderness to palpation. Soft.
[2023-03-27 09:58] LABS: Basophils Percent Auto 0.4 % (0.2-1.2); Eosinophils Absolute Auto 0.1 K/mm3 (0-0.3); Eosinophils Percent Auto 0.9 % (0-4.4); Hematocrit 48.5 % (42.0-52.0); Hemoglobin 16.5 g/dL (14.0-18.0); Immature Granulocyte Absolute 0.03 K/mm3 (0.00-0.031); Immature Granulocyte Percent A 0.3 % (0-0.5); Lymphocytes Absolute Auto 2.29 K/mm3 (0.9-3.2); Lymphocytes Percent Auto 23.1 % (18.3-44.2); Mean Corpuscular Hemoglobin 31.1 pg (26-34); Mean Corpuscular Volume 91.3 fl (80-100); Mean Platelet Volume 10.1 fl (7.4-10.4); Monocytes Absolute Auto 1.1 K/mm3 (0.1-0.6); Monocytes Percent Auto 10.8 % (2.6-8.5); Neutrophils Absolute Auto 6.4 K/mm3 (1.3-6.7); Neutrophils Percent Auto 64.5 % (45.5-73.1); Platelet Count Result 235 k/mm3 (150-375); Red Blood Count 5.31 M/mm3 (4.6-6.20); Red Cell Distribution Width 12.2 % (11.5-14.5); White Blood Count 9.9 K/mm3 (4.5-10.0)
[2023-03-27] MEDS: HYDROcodone/acetaminophen (*CRX) 10-325 MG TABLET 1 TAB PO (10:04)
[2023-03-27 10:11] LABS: Alanine Aminotransferase 35 U/L (6-50); Albumin Level 4.2 g/dL (3.5-5.1); Alkaline Phosphatase 99 U/L (38-126); Anion Gap 10 mmol/L (8-16); Aspartate Amino Transferase 28 U/L (17-59); Bilirubin,Total 0.8 mg/dL (0.2-1.3); Blood Urea Nitrogen 19 mg/dL (9-20); Calcium 8.8 mg/dL (8.4-10.2); Carbon Dioxide 21 mmol/L (22-30); Chloride 104 mmol/L (98-107); Estimated CRCL calculation 110 ml/min; Estimated Glomerular Filt Rate > 60; Glucose 167 mg/dL (65-110); Potassium 4.3 mmol/L (3.4-5.0); Sodium 135 mmol/L (137-145)
[2023-03-27] MEDS: AMPICILLIN SULB 3 GM/NS 100 ML 3 GM/100 ML VIAL IVPB (10:13)
[2023-03-27] MEDS: LIDOCAINE HCL 1% LOCAL INJ 10 ML VIAL 20 ML INFILTRATE (10:14)
== END 2023-03-27 13:25 | disposition home or self-care (01) ==
PROVIDERS: Emergency Provider Student in an Organized Health Care Education/Training Program; PCP Family Medicine
DX: K04.7 Periapical abscess without sinus (principal); I10 Essential (primary) hypertension; E78.5 Hyperlipidemia, unspecified; E11.9 Type 2 diabetes mellitus without complications; Z86.16 Personal history of COVID-19; Z79.84 Long term (current) use of oral hypoglycemic drugs
CPT/HCPCS: 36415; 41800; 70487; 80053; 85025; 96365; 99284; A9270; J0295; Q9967